=== PATIENT | female | born 1985 | race Two or more races ===

== ENCOUNTER 2018-01-07 14:54 | Emergency (ER) | payer MEDICAID ==
[~2018-01-07] VITALS: Ht 160 cm; Wt 71.3 kg
[~2018-01-07 14:54] MED LIST: CEPH250T PO; HYDR1TAB PO; IBUP-1051 PO; [UNRECOGNIZED DRUG - CODE] PO
[2018-01-07] MEDS ORDERED: TETanus/Pertussis (Acell)/Diphther VAC/PF (Tdap-Adult) 0.5ml syringe IM ONE (16:50)
[2018-01-07] MEDS ORDERED: LIDOcaine 1.5% w/epinephrine 1:200,000 5ml ampul IJ ONE (16:50)
[2018-01-07] MEDS ORDERED: levoFLOXACIN 750MG TABLET PO ONE (16:50)
[2018-01-07] MEDS ORDERED: DOXY-200 PO (17:10)
[2018-01-07] MEDS ORDERED: LEVO750T21 PO (17:10)
[2018-01-07] MEDS ORDERED: doxycycline hyclate 100mg tablet.DR PO SCH (17:30)
[2018-01-07 18:16] VITALS: BP 110/75
== END 2018-01-07 18:23 | disposition home or self-care (01) ==
LOC: ER 14:54
DX: L02.512 Cutaneous abscess of left hand (principal); Z88.0 Allergy status to penicillin; Z88.2 Allergy status to sulfonamides; Z79.899 Other long term (current) drug therapy
CPT/HCPCS: 26010; 73140; 90471; 90715; 99284; A6222; A6255; A6449; J3490

== ENCOUNTER 2020-04-30 09:45 | Emergency (ER) | payer MEDICAID ==
[~2020-04-30] VITALS: Ht 165.1 cm; Wt 12.7 kg
[~2020-04-30 09:45] MED LIST changes: -CEPH250T PO; +[UNRECOGNIZED DRUG - CODE] PO; -[UNRECOGNIZED DRUG - CODE] PO
[2020-04-30 11:01] VITALS: BP 116/86
[2020-04-30] MEDS ORDERED: proparacaine 0.5% ophthalmic drops 15ml EACHEYE ONE (11:15)
[2020-04-30] MEDS ORDERED: ERYT1OIN6 LEFTEYE (11:48)
== END 2020-04-30 11:59 | disposition home or self-care (01) ==
LOC: ER 09:46
DX: H10.89 Other conjunctivitis (principal); H57.12 Ocular pain, left eye; H53.8 Other visual disturbances; Z88.0 Allergy status to penicillin; Z88.2 Allergy status to sulfonamides; Z79.2 Long term (current) use of antibiotics; Z79.899 Other long term (current) drug therapy
CPT/HCPCS: 99283

== ENCOUNTER 2020-05-13 18:22 | Emergency (ER) | payer MEDICAID ==
[~2020-05-13] VITALS: Ht 165.1 cm; Wt 100.0 kg
[2020-05-13 18:36] VITALS: BP 136/90
[2020-05-13] MEDS ORDERED: HYDROcodone/acetaminophen 10/325mg tab PO ONE (20:00)
[2020-05-13] MEDS ORDERED: ondansetron 4mg rapidly disintigrating tab PO ONE (20:00)
[2020-05-13] MEDS ORDERED: DOXY100C76 PO (20:03)
[2020-05-13] MEDS ORDERED: CEPH250T PO (20:03)
[2020-05-13] MEDS ORDERED: TRAM50TA2 PO (20:03)
== END 2020-05-13 20:20 | disposition home or self-care (01) ==
LOC: ER 18:22
DX: L03.116 Cellulitis of left lower limb (principal); J45.909 Unspecified asthma, uncomplicated; Z90.49 Acquired absence of other specified parts of digestive tract; Z98.890 Other specified postprocedural states; Z88.0 Allergy status to penicillin; Z88.2 Allergy status to sulfonamides; Z79.899 Other long term (current) drug therapy
CPT/HCPCS: 73630; 99284

== ENCOUNTER 2021-01-06 12:34 | Emergency (ER) | payer MEDICAID ==
[~2021-01-06] VITALS: Ht 165.1 cm; Wt 71.2 kg
[~2021-01-06 12:34] MED LIST changes: -HYDR1TAB PO; -IBUP-1051 PO; +LACT1CAP26 PO; +TRAM50TA2 PO; -[UNRECOGNIZED DRUG - CODE] PO
[2021-01-06 14:16] VITALS: BP 125/87
--- NOTE | 2021-01-06 14:25 | NUR ---
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
== END 2021-01-06 15:46 | disposition home or self-care (01) ==
LOC: ER 12:35 → EEVIPCON 12:35 → ER 15:46
DX: R51.9 Headache, unspecified (principal); J45.909 Unspecified asthma, uncomplicated; Z90.89 Acquired absence of other organs; Z98.890 Other specified postprocedural states; Z59.0 Homelessness; Z88.0 Allergy status to penicillin; Z88.2 Allergy status to sulfonamides; Z79.899 Other long term (current) drug therapy
CPT/HCPCS: 99284

== ENCOUNTER 2022-02-06 15:21 | Emergency (ER) | payer MEDICAID ==
[~2022-02-06] VITALS: Ht 165.1 cm; Wt 62.3 kg
[2022-02-06 15:39] VITALS: BP 123/84
[2022-02-06] MEDS ORDERED: IBUP-1986 PO (16:59)
[2022-02-06] MEDS ORDERED: ibuprofen tablet 400 MG TABLET PO ONE (17:00)
== END 2022-02-06 17:08 | disposition home or self-care (01) ==
LOC: ER 15:21
DX: S93.402A Sprain of unspecified ligament of left ankle, initial encounter (principal); J45.909 Unspecified asthma, uncomplicated; Z90.49 Acquired absence of other specified parts of digestive tract; Z98.891 History of uterine scar from previous surgery; Z59.00 Homelessness unspecified; Z88.0 Allergy status to penicillin; Z88.2 Allergy status to sulfonamides; Z79.899 Other long term (current) drug therapy; W18.49XA Other slipping, tripping and stumbling without falling, initial encounter; Y93.51 Activity, roller skating (inline) and skateboarding; Y92.89 Other specified places as the place of occurrence of the external cause; Y99.8 Other external cause status
CPT/HCPCS: 29515; 73610; 99283; L1930

== ENCOUNTER 2022-06-07 22:16 | Emergency (ER) | payer MEDICAID ==
[~2022-06-07] VITALS: Ht 162.6 cm; Wt 62.0 kg
[~2022-06-07 22:16] MED LIST changes: +IBUP-1986 PO
[2022-06-08] MEDS ORDERED: morphine 4 MG/ML inj SYRINge IV ONE (02:00)
[2022-06-08] MEDS ORDERED: ondansetron/PF 4mg/2ml inj IV ONE (02:00)
[2022-06-08] MEDS ORDERED: normal saline 1000ML IV soln IVB ONE (02:00)
[2022-06-08] MEDS ORDERED: iohexol 300mg/ml 100ml inj. ONE (02:40)
[2022-06-08 02:55] LABS: BASOPHILS % (AUTO) 0.6 % (0-1); EOSINOPHILS # (AUTO) 0.2 X10'3 (0-0.9); EOSINOPHILS % (AUTO) 2.4 % (0-6); HCG SERUM QL NEGATIVE; HEMATOCRIT 34.3 % (35.0-45.0); HEMOGLOBIN 11.2 g/dl (12.0-16.0); LYMPHOCYTES # (AUTO) 2.6 X10'3 (1.1-4.8); LYMPHOCYTES % (AUTO) 34.9 % (21-51); MEAN CORPUSCULAR HEMOGLOBIN 29.9 PG (27.0-31.0); MEAN CORPUSCULAR HGB CONC 32.7 g/dL (33.0-36.5); MEAN CORPUSCULAR VOLUME 91.5 FL (78-98); MEAN PLATELET VOLUME 8.4 FL (7.4-10.4); MONOCYTES # (AUTO) 0.6 X10'3 (0-0.9); MONOCYTES % (AUTO) 8.3 % (2-12); NEUTROPHILS % (AUTO) 53.8 % (42-75); PLATELET COUNT 252 X10'3 (140-440); RED BLOOD COUNT 3.75 X10'6 (4.20-5.60); RED CELL DISTRIBUTION WIDTH 13.3 % (11.5-14.5); WHITE BLOOD COUNT 7.4 X10'3 (4.5-11.0)
[2022-06-08 03:00] LABS: ALANINE AMINOTRANSFERASE 18 U/L (12-78); ALBUMIN 2.9 G/DL (3.4-5.0); ALBUMIN/GLOBULIN RATIO 0.7 (1.1-1.5); ALKALINE PHOSPHATASE 83 IU/L (46-116); ANION GAP 6 (8-16); ASPARTATE AMINO TRANSFERASE 23 U/L (10-37); BILIRUBIN,TOTAL 0.3 MG/DL (0.1-1.0); BLOOD UREA NITROGEN 10 MG/DL (7-18); BUN/CREATININE RATIO 13.3 (6.6-38.0); CALCIUM 8.6 MG/DL (8.5-10.1); CHLORIDE 101 MMOL/L (99-107); CREATININE 0.75 MG/DL (0.40-0.90); GLUCOSE 95 MG/DL (70-104); POTASSIUM 3.7 MMOL/L (3.5-5.1); SODIUM 138 MMOL/L (135-145); TOTAL CARBON DIOXIDE 31.3 MMOL/L (24-32); TOTAL PROTEIN 7.1 G/DL (6.4-8.2); eGFR 86 ML/MIN
[2022-06-08] MEDS ORDERED: LIDOcaine 1% W/epiNEPHrine 1:100,000 20ml vial SQ ONE (04:20)
[2022-06-08] MEDS ORDERED: BUPIVAcaine 0.25% w/Epi /PF 30ml vial SQ ONE (04:25)
[2022-06-08] MEDS ORDERED: LIDOcaine 1% w/EPI 1:100,000 30ml vial (MDV) IJ ONE (04:30)
[2022-06-08] MEDS ORDERED: CEPH-585 PO (05:08)
[2022-06-08] MEDS ORDERED: DOXYCYCLINE 100MG CAPSULE PO STA (05:08)
[2022-06-08] MEDS ORDERED: DOXY-1 PO (05:08)
[2022-06-08] MEDS ORDERED: cephalexin 250mg capsule PO ONE (05:10)
[2022-06-08 05:43] VITALS: BP 112/78
== END 2022-06-08 06:12 | disposition home or self-care (01) ==
LOC: ER 22:17
DX: L02.31 Cutaneous abscess of buttock (principal); J45.909 Unspecified asthma, uncomplicated; Z90.89 Acquired absence of other organs; Z98.890 Other specified postprocedural states; Z59.00 Homelessness unspecified; Z88.0 Allergy status to penicillin; Z88.2 Allergy status to sulfonamides; Z79.2 Long term (current) use of antibiotics; Z79.899 Other long term (current) drug therapy
CPT/HCPCS: 36415; 74177; 80053; 83605; 84703; 85025; 85610; 87040; 96361; 96374; 96375; 99285; J2270; J2405; J3490; J7030; Q9967; A6253; A6449

== ENCOUNTER 2022-12-06 19:10 | Emergency (ER) | payer MEDICAID ==
[~2022-12-06] VITALS: Ht 165.1 cm; Wt 63.0 kg
[2022-12-06 19:16] VITALS: BP 129/91
[2022-12-06] MEDS ORDERED: Cipro HC otic suspension 10ML bottle RIGHT EAR ONE (19:35)
[2022-12-06] MEDS ORDERED: DOXYCYCLINE 100MG CAPSULE PO STA (19:42)
[2022-12-06] MEDS ORDERED: DOXY100C76 PO (19:44)
[2022-12-06] MEDS ORDERED: CIPR10DR RIGHT EAR (19:44)
[2022-12-06] MEDS ORDERED: fluconazole 100mg tablet PO ONE (19:45)
== END 2022-12-06 20:09 | disposition home or self-care (01) ==
LOC: ER 19:11
DX: H60.91 Unspecified otitis externa, right ear (principal); Z88.0 Allergy status to penicillin; Z88.2 Allergy status to sulfonamides; Z79.899 Other long term (current) drug therapy
CPT/HCPCS: 99283

== ENCOUNTER 2022-12-25 13:42 | Emergency (ER) | payer MEDICAID ==
[~2022-12-25] VITALS: Ht 165.1 cm; Wt 59.1 kg
[2022-12-25 14:32] VITALS: BP 93/60
[2022-12-25] MEDS ORDERED: rabies vaccine (PCEC)/PF 2.5 unit kit IMVAC ONE (15:05)
[2022-12-25] MEDS ORDERED: rabies immune globulin/PF 150 unit/ml inj IMVAC ONE (15:05)
[2022-12-25] MEDS ORDERED: TETanus/Pertussis (Acell)/Diphther VAC/PF (Tdap-Adult) 0.5ml syringe IMVAC ONE (15:05)
[2022-12-25] MEDS ORDERED: NAPR-56 PO (15:48)
[2022-12-25] MEDS ORDERED: TRAM50TA2 PO (15:48)
[2022-12-25] MEDS ORDERED: CEPH250T PO (15:48)
== END 2022-12-25 16:38 | disposition home or self-care (01) ==
LOC: ER 13:43
DX: S61.452A Open bite of left hand, initial encounter (principal); W54.0XXA Bitten by dog, initial encounter; Z20.3 Contact with and (suspected) exposure to rabies; Y93.89 Activity, other specified; Y92.89 Other specified places as the place of occurrence of the external cause; Y99.8 Other external cause status
CPT/HCPCS: 73130; 90376; 90471; 90472; 90675; 90715; 96372; 99284

== ENCOUNTER 2023-01-31 15:26 | Emergency (ER) | payer MEDICAID ==
[~2023-01-31] VITALS: Ht 165.1 cm; Wt 65.0 kg
[2023-01-31 15:37] VITALS: BP 108/79
--- NOTE | 2023-01-31 15:51 | NUR ---
Met with patient for [facility]. Patient has been off Fentanyl 2 days. Wants to start Suboxone. Has appt with Milagro in 1 week. I talked to Darline she will start Suboxone. Patient has my card to call me with any questions.
[2023-01-31] MEDS ORDERED: ONDA4TAB12 PO (16:31)
[2023-01-31] MEDS ORDERED: BUPR1FIL3 SL (16:31)
== END 2023-01-31 16:45 | disposition home or self-care (01) ==
LOC: ER 15:28
DX: R11.0 Nausea (principal); F41.9 Anxiety disorder, unspecified; R45.1 Restlessness and agitation; F11.10 Opioid abuse, uncomplicated; J45.909 Unspecified asthma, uncomplicated; F17.210 Nicotine dependence, cigarettes, uncomplicated; Z88.0 Allergy status to penicillin; Z88.2 Allergy status to sulfonamides; Z98.890 Other specified postprocedural states
CPT/HCPCS: 99283

== ENCOUNTER 2023-02-21 03:02 | Emergency (ER) | payer MEDICAID ==
[~2023-02-21 03:02] MED LIST changes: -IBUP-1986 PO; -LACT1CAP26 PO; +ONDA4TAB12 PO; -TRAM50TA2 PO
--- NOTE | 2023-02-21 03:13 | NUR ---
started triage, security found contraband in her belongings, she is leaving and doesn't want to stay apparently
== END 2023-02-21 03:14 | disposition left against medical advice (07) ==
LOC: ER 03:03
DX: Z00.8 Encounter for other general examination (principal); Z53.21 Procedure and treatment not carried out due to patient leaving prior to being seen by health care provider
CPT/HCPCS: 85025

== ENCOUNTER 2023-09-01 14:59 | Emergency (ER) | payer MEDICAID ==
[~2023-09-01] VITALS: Ht 165.1 cm; Wt 65.9 kg
[~2023-09-01 14:59] MED LIST changes: +BUPR1FIL20 PO
[2023-09-01 15:56] VITALS: BP 158/83; TEMP 97.9
[2023-09-01] MEDS ORDERED: AZIT-164 PO (17:08)
[2023-09-01] MEDS ORDERED: ALBU8HFA INH (17:08)
[2023-09-01] MEDS ORDERED: ROBDML PO (17:09)
[2023-09-01] MEDS ORDERED: BENZ-38 PO (17:09)
[2023-09-01 18:05] VITALS: PULSE 71; RESP 18; O2SAT 97
== END 2023-09-01 17:50 | disposition home or self-care (01) ==
LOC: ER 14:59
DX: J06.9 Acute upper respiratory infection, unspecified (principal); Z20.822 Contact with and (suspected) exposure to COVID-19; R05.9 Cough, unspecified; J45.909 Unspecified asthma, uncomplicated; Z90.49 Acquired absence of other specified parts of digestive tract; Z88.0 Allergy status to penicillin; Z88.2 Allergy status to sulfonamides; Z79.899 Other long term (current) drug therapy
CPT/HCPCS: 36415; 87811; 99283

== ENCOUNTER 2023-09-23 12:35 | Emergency (ER) | payer MEDICAID ==
[~2023-09-23] VITALS: Ht 165.1 cm; Wt 59.1 kg
[~2023-09-23 12:35] MED LIST changes: +ALBU8HFA INH; +AZIT-164 PO; +ROBDML PO
[2023-09-23 12:45] VITALS: BP 118/82; PULSE 74; RESP 18; TEMP 97.8; O2SAT 98
[2023-09-23] MEDS ORDERED: PRED20TA PO (13:12)
[2023-09-23] MEDS ORDERED: HYDR-3965 PO (13:12)
[2023-09-23] MEDS ORDERED: ACYC-128 PO (13:12)
== END 2023-09-23 13:40 | disposition home or self-care (01) ==
LOC: ER 12:36
DX: B00.89 Other herpesviral infection (principal); Z88.0 Allergy status to penicillin; Z88.2 Allergy status to sulfonamides; Z79.1 Long term (current) use of non-steroidal anti-inflammatories (NSAID); Z79.899 Other long term (current) drug therapy; Z98.890 Other specified postprocedural states
CPT/HCPCS: 99283

== ENCOUNTER → 2024-01-31 | Outpatient (CLI) | payer MEDICAID ==
[~2024-01-31] MED LIST changes: -ALBU8HFA INH; -AZIT-164 PO; -ROBDML PO
== END | disposition home or self-care (01) ==
LOC: RAD 14:55
PROVIDERS: ATTEND Family Medicine
DX: K76.0 Fatty (change of) liver, not elsewhere classified (principal); B19.20 Unspecified viral hepatitis C without hepatic coma; K80.20 Calculus of gallbladder without cholecystitis without obstruction; J90 Pleural effusion, not elsewhere classified
CPT/HCPCS: 76700